=== PATIENT | male | born 1995 | race Caucasian/White ===

== ENCOUNTER → 2020-03-31 | Outpatient (CLI) | payer OTHER | END | disposition home or self-care (01) | LOC: LAB 11:53 | PROVIDERS: ATTEND Internal Medicine Pulmonary Disease | DX: R50.9 Fever, unspecified (principal); J02.9 Acute pharyngitis, unspecified; Z20.828 Contact with and (suspected) exposure to other viral communicable diseases | CPT/HCPCS: U0003-CS ==

== ENCOUNTER → 2020-08-02 | Outpatient (CLI) | payer OTHER | LOC: LAB 10:17 | PROVIDERS: ATTEND Internal Medicine Pulmonary Disease | DX: U07.1 COVID-19 (principal) | CPT/HCPCS: U0003 ==